=== PATIENT | male | born 1965 | race Caucasian/White ===

== ENCOUNTER 2024-12-23 14:36 | Emergency (ER) | payer SELFPAY ==
--- NOTE | ~2024-12-23 | XR_ITS ---
XR finger 5th RT min 2V Ordering provider: Angie Jerez PA-C History: . laceration yesterday, r/o fx/fb . Comparison: None. FINDINGS: BONES: No acute fracture or dislocation. JOINT SPACES: Normal. SOFT TISSUES: Normal. IMPRESSION: No acute osseous abnormality. No radiopaque foreign bodies. Reviewed, dictated and finalized at location A.
[2024-12-23 14:55] VITALS: BP 224/99; PULSE 76; RESP 16; TEMP 36.3; O2SAT 100
[2024-12-23 17:31] LABS: Add Urine Microscopic? YES; Appearance Urine Clear (Clear); Bacteria Urine None Seen /hpf; Bilirubin Urine Negative (Negative); Blood Urine Trace (Negative); Color Urine Yellow (Yellow); Glucose Urine UA Negative (Negative); Ketones Urine Negative (Negative); Leukocyte Esterase Ur Negative LEU/UL (Negative); Nitrate Urine Negative (Negative); Non Pathogenic Casts 0-2; Protein Urine Negative (Negative); Specific Grav Ur 1.019 (1.001-1.035); Squamous Epithelial Cell Urine None Seen /hpf (Few); Urobilinogen Urine 0.2 mg/dL (<2.0); WBC Urine 0-5 /hpf (0-3); pH Urine 5.5 (5.0-9.0)
[2024-12-23] MEDS: amLODIPine BESYLATE 5 MG TABLET PO (18:04)
[2024-12-23] MEDS: CEPHALEXIN 500 MG CAPSULE PO (18:04)
[2024-12-23] MEDS: TETANUS,DIPHTHERIA,AC PERTUSSIS ADULT (0.5 ML) BOOSTRIX IM (18:05)
--- NOTE | 2024-12-23 18:23 | ED_ITS ---
HPI - Wound/Laceration General Chief Complaint: Wound/Laceration Stated Complaint: R pink finger lac yesterday Time Seen by Provider: 12/23/24 16:57 Source: patient Mode of arrival: ambulatory Limitations: no limitations History of Present Illness HPI narrative: Patient is a 59-year-old male who presents the ED with report of a laceration to his right 5th digit. Patient reports he was working with his friend with metal around 3pm yesterday afternoon when he sustained a laceration to his right 5th digit finger pad. States he bandaged it at home. Denies any numbness. Is able to move the digit without issue. Has some pain. Unknown last tetanus shot. No other injuries. Review of Systems Review of Systems: All systems reviewed & are unremarkable except as noted in HPI. All systems reviewed & are unremarkable except as noted in HPI and below Exam Narrative: GENERAL: Appears older than stated age, thin, non-toxic, in no acute distress. HEAD: Normocephalic, atraumatic. RESPIRATORY: Airway patent, respirations nonlabored CARDIOVASCULAR: Regular rate and rhythm MUSCULOSKELETAL: Moves all extremities. No gross deformities. ROM of R 5th finger intact. SKIN: Warm, dry, normal color. Approx 1cm linear laceration to R 5th digit finger pad without active bleeding or drainage, slightly gaping, some subq fat exposed, no significant focal tenderness. Sensation intact. Capillary refill intact. NEURO: A&O X3. Speech clear. PSYCHIATRIC: Appropriate mood and affect. Normal interaction. Course Vital Signs Vital signs: Vital Signs Temperature 97.4 F L 12/23/24 14:55 Pulse Rate 76 12/23/24 14:55 Respiratory Rate 16 12/23/24 14:55 Blood Pressure 224/99 H 12/23/24 14:55 Pulse Oximetry 100 12/23/24 14:55 Temperature 97.4 F L 12/23/24 14:55 Pulse Rate 77 12/23/24 19:04 Respiratory Rate 20 12/23/24 19:04 Blood Pressure 191/120 H 12/23/24 19:04 Pulse Oximetry 100 12/23/24 19:04 Procedures Laceration Laceration 1: Date: 12/23/24 Time: 19:00 Site: hand Side (If applicable): right (5th digit) Size (cm): 1 Description: linear Depth: simple, single layer Local Anesthetic: none Pre-repair: wound explored, irrigated and irrigated extensively ====== Skin Level ====== Skin layer closed with: steri strips ====== Subcutaneous Layer ====== ====== Muscle Layer ====== ====== Tendon Layer ====== MDM - Wound/Laceration MDM Narrative Medical decision making narrative: Patient presented to ED with report of laceration to right 5th digit. Neurovascularly intact. X-ray without evidence of fracture or foreign body. Wound is unfortunately greater than 24 hours old. Patient's wound was thoroughly irrigated and repaired with Steri-Strips. Will have to heal by secon jia intention. Patient was started on antibiotics for infection prophylaxis. Tetanus updated in the ED. Patient was notably hypertensive upon arrival to the ED. He admits that he was previously on blood pressure medicine, but has not been on this for some time as he has not recently seen a doctor. He is scheduled to see a new primary care doctor in February of this year. He is unsure which medication he was on previously. He is asymptomatic regarding this. Denies any red flag symptoms. Denies chest pain, shortness of breath, headaches, vision changes, lightheadedness, dizziness, focal numbness or weakness. Patient started on low dose amlodipine 5mg here. Will prescribe this for home. Advised to continue to monitor blood pressures at home and keep recording of this. Advised close follow-up with PCP. Given strict return precautions. Medical Records Attestation: I reviewed the patient's medical records. Lab Data Attestation: I reviewed the patient's lab results. Labs: Lab Results 12/23/24 Range/Units 17:15 Urine Color Yellow (Yellow) Urine Appearance Clear (Clear) Urine pH 5.5 (5.0-9.0) Ur Specific [place] 1.019 (1.001-1.035) Urine Protein Negative (Negative) mg/dL Urine Glucose (UA) Negative (Negative) mg/dL Urine Ketones Negative (Negative) mg/dL Ur Blood (Man) Trace (Negative) Urine Nitrate Negative (Negative) Urine Bilirubin Negative (Negative) Urine Urobilinogen 0.2 (<2.0) mg/dL Leukocyte Esterase Rfl Negative (Negative) ROBERT/UL Urine RBC 3-5 H (0-2) /hpf Urine WBC 0-5 (0-3) /hpf Ur Squamous Epith Cells None seen (Few) /hpf Urine Bacteria None seen /hpf Urine Casts 0-2 Imaging Data Attestation: I personally reviewed and interpreted this imaging study as follows: Radiologist's impression: ITS Impressions Finger X-Ray 12/23/24 18:31 IMPRESSION: No acute osseous abnormality. No radiopaque foreign bodies. Discharge Plan Discharge Clinical Impression: Laceration of finger of right hand, Elevated blood pressure reading with diagnosis of hypertension Patient Disposition: Home Condition: Stable Instructions: Antibiotic Form, Laceration (ED), Chronic Hypertension (ED), Chronic Wounds (ED) Additional Instructions: Your laceration will have to heal on its own. Keep wound clean and dry. Change bandage daily. Take antibiotics as prescribed for protection against infection. Follow-up with your primary care doctor for further evaluation. Return to the ED for severe pain, numbness, uncontrolled bleeding, fever, chills, pus-like drainage, or redness/swelling/warmth surrounding the wound, as these could be signs of an infection. Your blood pressure was very elevated here today in the ED. Take amlodipine daily as prescribed. Follow-up with your primary care doctor for this. Keep a recording of your blood pressures at home. Patient Language: Ethiopian Prescriptions: New cephalexin 500 mg capsule 500 mg PO Q6H 7 Days Qty: 28 0RF amlodipine 5 mg tablet 5 mg PO DAILY Qty: 90 0RF Follow-up/Referrals: PHYSICIAN,[employer]ACHINE [Primary Care Provider] - Ector Panchal MD [Physician] - (PRIMARY CARE) Time of Disposition: 19:04
[2024-12-23 19:04] VITALS: BP 191/120; PULSE 77; RESP 20; O2SAT 100
== END 2024-12-23 19:16 | disposition home or self-care (01) ==
PROVIDERS: Emergency Provider Physician Assistant
DX: S61.216A Laceration without foreign body of right little finger without damage to nail, initial encounter (principal); Z23 Encounter for immunization; I10 Essential (primary) hypertension; W26.8XXA Contact with other sharp object(s), not elsewhere classified, initial encounter
CPT/HCPCS: 73140; 81001; 90471; 90715; 99283; A9270